=== PATIENT | male | born 1940 | race Caucasian/White ===

== ENCOUNTER 2022-02-20 08:28 | Day surgery (SDC) | payer MEDICARE ==
[2022-02-20 09:34] LABS: Prothrombin Time 10.9 sec (9.5-12.1)
[2022-02-20 09:46] VITALS: BP 166/77; TEMP 97.4; BMI 25.5
== END 2022-02-20 11:10 | disposition home or self-care (01) ==
LOC: CSHCT 08:28
PROVIDERS: ATTEND Internal Medicine Hematology & Oncology
DX: D46.9 Myelodysplastic syndrome, unspecified (principal); D46.0 Refractory anemia without ring sideroblasts, so stated; D50.9 Iron deficiency anemia, unspecified; E53.9 Vitamin B deficiency, unspecified; D53.8 Other specified nutritional anemias; I10 Essential (primary) hypertension; I25.10 Atherosclerotic heart disease of native coronary artery without angina pectoris; E89.0 Postprocedural hypothyroidism; Z79.899 Other long term (current) drug therapy; Z88.1 Allergy status to other antibiotic agents; Z88.8 Allergy status to other drugs, medicaments and biological substances; Z98.890 Other specified postprocedural states
CPT/HCPCS: 38222; 85610; 88184; 88237; 88264; 88280; 88365